=== PATIENT | male | born 1985 | race Caucasian/White ===

== ENCOUNTER 2017-01-28 14:21 | Emergency (ER) | payer BC ==
--- NOTE | 2017-01-28 14:32 | EDM.PDOC ---
ED HPI GENERAL MEDICAL PROBLEM - General Stated Complaint: HIGH BP Time Seen by Provider: 01/28/17 14:24 Source of Information: Reports: Patient History Limitations: Reports: No Limitations - History of Present Illness INITIAL COMMENTS - FREE TEXT/NARRATIVE: History of present illness: []Patient presents with high blood pressure this morning after inability to sleep all night. Patient states he has felt irritable and uncomfortable with occasional palpitations in his chest and headache. He denies any fevers, chills , blurry vision, nausea, vomiting or numbness or tingling. His checked his blood pressure and found it to be 150/100 this morning decided to come into the ER to have it checked. He has a strong family history of hypertension not been diagnosed with hypertension and is not currently taking any medications. Review of systems: As per history of present illness and below otherwise all systems reviewed and negative. Past medical history: As per history of present illness and as reviewed below otherwise noncontributory. Surgical history: As per history of present illness and as reviewed below otherwise noncontributory. Social history: No reported history of drug or alcohol abuse. Family history: As per history of present illness and as reviewed below otherwise noncontributory. Physical exam: General: Well developed, well nourished in NAD HEENT: Atraumatic, normocephalic, pupils reactive, negative for conjunctival pallor or scleral icterus, mucous membranes moist, throat clear, neck supple, nontender, trachea midline. Lungs: Clear to auscultation, breath sounds equal bilaterally, chest nontender. Heart: S1S2, regular, negative for clicks, rubs, or JVD. Abdomen: Soft, nondistended, nontender. Negative for masses or hepatosplenomegaly. Negative for costovertebral tenderness. Pelvis: Stable nontender. Genitourinary: Deferred. Rectal: Deferred. Extremities: Atraumatic, negative for cords or calf pain. Neurovascular unremarkable. Neuro: Awake, alert, oriented. Cranial nerves II through XII unremarkable. Cerebellum unremarkable. Motor and sensory unremarkable throughout. Exam nonfocal. Diagnostics: []Labs and x-ray done which are normal Therapeutics: [] Impression: []Uncontrolled high blood pressure, acute sinusitis, anxiety Plan: []Bactrim 10 days and Ativan 5 tablets 0.5 mg Definitive disposition and diagnosis as appropriate pending reevaluation and review of above. - Related Data Allergies Allergy/AdvReac Type Severity Reaction Status Date / Time No Known Allergies Allergy Verified 01/28/17 14:31 Home Meds: Home Meds Albuterol [Ventolin HFA] 1 puff INH Q4H PRN 08/08/13 [History] Fluticasone/Salmeterol [Advair Diskus 100-50] 1 puff INH BID 01/28/17 [History] LORazepam [Ativan] 0.5 mg PO Q8HR PRN #5 tablet 01/28/17 [Rx] Montelukast Sodium [Singulair] 10 mg PO DAILY 01/28/17 [History] Sulfamethoxazole/Trimethoprim [Bactrim Ds Tablet] 1 each PO BID #20 tablet 01/28 [Rx] Past Medical History - Past Health History Medical/Surgical History: Denies Medical/Surgical History Social & Family History - Recreational Drug Use Recreational Drug Use: No ED ROS GENERAL - Review of Systems Review Of Systems: See Below (See history of present illness) ED EXAM, GENERAL - Physical Exam Exam: See Below (See history of present illness) Course - Vital Signs Last Recorded V/S: Last Vital Signs Temp 36.3 C 01/28/17 14:27 Pulse 90 01/28/17 14:27 Resp 12 01/28/17 14:27 BP 148/96 H 01/28/17 14:27 Pulse Ox 98 01/28/17 14:27 - Orders/Labs/Meds Orders: Active Orders 24 hr Category Date Time Status EKG Documentation Completion [RC] STAT Care 01/28/17 14:45 Active Sodium Chloride 0.9% [Saline Flush] Med 01/28/17 14:45 Active 10 ml FLUSH ASDIRECTED PRN Sodium Chloride 0.9% [Saline Flush] Med 01/28/17 14:45 Active 2.5 ml FLUSH ASDIRECTED PRN Saline Lock Insert [OM.PC] Stat Oth 01/28/17 14:45 Ordered Medication Orders Sodium Chloride (Saline Flush) 10 ml FLUSH ASDIRECTED PRN PRN Reason: Keep Vein Open Sodium Chloride (Saline Flush) 2.5 ml FLUSH ASDIRECTED PRN PRN Reason: Keep Vein Open Labs: Laboratory Tests 01/28/17 01/28/17 01/28/17 Range/Units 15:03 15:03 15:12 WBC 7.03 (4.0-11.0) K/uL RBC 5.74 (4.50-5.90) M/uL Hgb 17.1 H (13.0-17.0) g/dL Hct 47.9 (38.0-50.0) % MCV 83.4 (80.0-98.0) fL MCH 29.8 (27.0-32.0) pg MCHC 35.7 (31.0-37.0) g/dL RDW Std Deviation 37.0 (28.0-62.0) fl RDW Coeff of Rangel 12 (11.0-15.0) % Plt Count 199 (150-400) K/uL MPV 8.80 (7.40-12.00) fL Neut % (Auto) 65.0 (48.0-80.0) % Lymph % (Auto) 24.6 (16.0-40.0) % Eaton % (Auto) 8.4 (0.0-15.0) % Eos % (Auto) 1.4 (0.0-7.0) % Baso % (Auto) 0.6 (0.0-1.5) % Neut # (Auto) 4.6 (1.4-5.7) K/uL Lymph # (Auto) 1.7 (0.6-2.4) K/uL Eaton # (Auto) 0.6 (0.0-0.8) K/uL Eos # (Auto) 0.1 (0.0-0.7) K/uL Baso # (Auto) 0.0 (0.0-0.1) K/uL Nucleated RBC % 0.0 /100WBC Nucleated RBCs # 0 K/uL Sodium (136-146) mmol/L Potassium (3.5-5.1) mmol/L Chloride (98-110) mmol/L Carbon Dioxide (21-31) mmol/L BUN (6.0-23.0) mg/dL Creatinine (0.6-1.5) mg/dL Est Cr Clr Drug Dosing mL/min Estimated GFR (MDRD) ml/min Glucose (60-110) mg/dL Calcium (8.8-10.8) mg/dL Total Bilirubin (0.1-1.5) mg/dL AST (5-40) IU/L ALT (8-54) IU/L Alkaline Phosphatase (40-150) Troponin I (0.0-0.29) NG/ML Total Protein (6.0-8.0) g/dL Albumin (3.5-5.0) g/dL Globulin (2.0-3.5) g/dL Albumin/Globulin Ratio (1.3-2.8) Urine Color YELLOW Urine Appearance CLEAR Urine pH 6.0 (5.0-8.0) Ur Specific Edison 1.025 (1.001-1.035) Urine Protein NEGATIVE (NEGATIVE) mg/dL Urine Glucose (UA) NEGATIVE (NEGATIVE) mg/dL Urine Ketones NEGATIVE (NEGATIVE) mg/dL Urine Occult Blood NEGATIVE (NEGATIVE) Urine Nitrite NEGATIVE (NEGATIVE) Urine Bilirubin NEGATIVE (NEGATIVE) Urine Urobilinogen 0.2 (<2.0) EU/dL Ur Leukocyte Esterase NEGATIVE (NEGATIVE) Urine RBC NONE SEEN (0-2/HPF) Urine WBC 0-1 (0-5/HPF) Ur Epithelial Cells RARE (NONE-FEW) Urine Bacteria RARE (NEGATIVE) Urine Opiates Screen NEGATIVE (NEGATIVE) Ur Oxycodone Screen NEGATIVE (NEGATIVE) Urine Methadone Screen NEGATIVE (NEGATIVE) Ur Barbiturates Screen NEGATIVE (NEGATIVE) Ur Phencyclidine Scrn NEGATIVE (NEGATIVE) Ur Amphetamine Screen NEGATIVE (NEGATIVE) U Methamphetamines Scrn NEGATIVE (NEGATIVE) U Benzodiazepines Scrn NEGATIVE (NEGATIVE) U Cocaine Metab Screen NEGATIVE (NEGATIVE) U Marijuana (THC) Screen NEGATIVE (NEGATIVE) 01/28/17 01/28/17 Range/Units 15:12 15:12 WBC (4.0-11.0) K/uL RBC (4.50-5.90) M/uL Hgb (13.0-17.0) g/dL Hct (38.0-50.0) % MCV (80.0-98.0) fL MCH (27.0-32.0) pg MCHC (31.0-37.0) g/dL RDW Std Deviation (28.0-62.0) fl RDW Coeff of Rangel (11.0-15.0) % Plt Count (150-400) K/uL MPV (7.40-12.00) fL Neut % (Auto) (48.0-80.0) % Lymph % (Auto) (16.0-40.0) % Eaton % (Auto) (0.0-15.0) % Eos % (Auto) (0.0-7.0) % Baso % (Auto) (0.0-1.5) % Neut # (Auto) (1.4-5.7) K/uL Lymph # (Auto) (0.6-2.4) K/uL Eaton # (Auto) (0.0-0.8) K/uL Eos # (Auto) (0.0-0.7) K/uL Baso # (Auto) (0.0-0.1) K/uL Nucleated RBC % /100WBC Nucleated RBCs # K/uL Sodium 140 (136-146) mmol/L Potassium 4.0 (3.5-5.1) mmol/L Chloride 106 (98-110) mmol/L Carbon Dioxide 24 (21-31) mmol/L BUN 22 (6.0-23.0) mg/dL Creatinine 0.9 (0.6-1.5) mg/dL Est Cr Clr Drug Dosing 133.17 mL/min Estimated GFR (MDRD) > 60.0 ml/min Glucose 96 (60-110) mg/dL Calcium 9.7 (8.8-10.8) mg/dL Total Bilirubin 0.5 (0.1-1.5) mg/dL AST 21 (5-40) IU/L ALT 25 (8-54) IU/L Alkaline Phosphatase 64 (40-150) Troponin I < 0.10 (0.0-0.29) NG/ML Total Protein 7.6 (6.0-8.0) g/dL Albumin 4.4 (3.5-5.0) g/dL Globulin 3.2 (2.0-3.5) g/dL Albumin/Globulin Ratio 1.4 (1.3-2.8) Urine Color Urine Appearance Urine pH (5.0-8.0) Ur Specific Edison (1.001-1.035) Urine Protein (NEGATIVE) mg/dL Urine Glucose (UA) (NEGATIVE) mg/dL Urine Ketones (NEGATIVE) mg/dL Urine Occult Blood (NEGATIVE) Urine Nitrite (NEGATIVE) Urine Bilirubin (NEGATIVE) Urine Urobilinogen (<2.0) EU/dL Ur Leukocyte Esterase (NEGATIVE) Urine RBC (0-2/HPF) Urine WBC (0-5/HPF) Ur Epithelial Cells (NONE-FEW) Urine Bacteria (NEGATIVE) Urine Opiates Screen (NEGATIVE) Ur Oxycodone Screen (NEGATIVE) Urine Methadone Screen (NEGATIVE) Ur Barbiturates Screen (NEGATIVE) Ur Phencyclidine Scrn (NEGATIVE) Ur Amphetamine Screen (NEGATIVE) U Methamphetamines Scrn (NEGATIVE) U Benzodiazepines Scrn (NEGATIVE) U Cocaine Metab Screen (NEGATIVE) U Marijuana (THC) Screen (NEGATIVE) Meds: Medications Generic Name Dose Route Start Last Admin Trade Name Freq PRN Reason Stop Dose Admin Sodium Chloride 10 ml 01/28/17 14:45 Saline Flush FLUSH ASDIRECTED PRN Keep Vein Open Sodium Chloride 2.5 ml 01/28/17 14:45 Saline Flush FLUSH ASDIRECTED PRN Keep Vein Open Departure - Departure Time of Disposition: 15:52 Disposition: Home, Self-Care 01 Condition: Good Clinical Impression: Anxiety Sinusitis Qualifiers: Sinusitis location: unspecified location Chronicity: acute Recurrence: non- recurrent Qualified Code(s): J01.90 - Acute sinusitis, unspecified - Discharge Information Prescriptions: LORazepam [Ativan] 0.5 mg PO Q8HR PRN #5 tablet PRN Reason: Anxiety Sulfamethoxazole/Trimethoprim [Bactrim Ds Tablet] 1 each PO BID #20 tablet Instructions: Sinusitis, Adult, [id number], Panic Attacks Referrals: PCP,Unknown [Primary Care Provider] - Forms: ED Department Discharge Additional Instructions: The following information is given to patients seen in the emergency department who are being discharged to home. This information is to outline your options for follow-up care. We provide all patients seen in our emergency department with a follow-up referral. The need for follow-up, as well as the timing and circumstances, are variable depending upon the specifics of your emergency department visit. If you don't have a primary care physician on staff, we will provide you with a referral. We always advise you to contact your personal physician following an emergency department visit to inform them of the circumstance of the visit and for follow-up with them and/or the need for any referrals to a consulting specialist. The emergency department will also refer you to a specialist when appropriate. This referral assures that you have the opportunity for follow-up care with a specialist. All of these measure are taken in an effort to provide you with optimal care, which includes your follow-up. Under all circumstances we always encourage you to contact your private physician who remains a resource for coordinating your care. When calling for follow-up care, please make the office aware that this follow-up is from your recent emergency room visit. If for any reason you are refused follow-up, please contact the [facility] Emergency Department at and asked to speak to the emergency department charge nurse. Bactrim twice a day for 10 days, Ativan for anxiety follow-up with primary care physician for further blood pressure treatment return here if symptoms worsen or change [facility] [address] [place] [id number] - My Orders Last 24 Hours: My Active Orders 01/28/17 14:45 EKG Documentation Completion [RC] STAT Sodium Chloride 0.9% [Saline Flush] 10 ml FLUSH ASDIRECTED PRN Sodium Chloride 0.9% [Saline Flush] 2.5 ml FLUSH ASDIRECTED PRN Saline Lock Insert [OM.PC] Stat - Assessment/Plan Last 24 Hours: My Active Orders 01/28/17 14:45 EKG Documentation Completion [RC] STAT Sodium Chloride 0.9% [Saline Flush] 10 ml FLUSH ASDIRECTED PRN Sodium Chloride 0.9% [Saline Flush] 2.5 ml FLUSH ASDIRECTED PRN Saline Lock Insert [OM.PC] Stat
[2017-01-28] MEDS ORDERED: Sodium Chloride 0.9% 2.5 ML Syringe FLUSH PRN (14:45)
[2017-01-28] MEDS ORDERED: Sodium Chloride 0.9% 10 ML Syringe FLUSH PRN (14:45)
[2017-01-28 15:41] LABS: CHLORIDE,CL 106 mmol/L (98-110); SODIUM,NA 140 mmol/L (136-146)
--- NOTE | 2017-01-28 15:44 | CR ---
EXAMINATION: Portable chest radiograph. HISTORY: Shortness of breath. FINDINGS: The trachea is midline. The cardiomediastinal silhouette is within normal limits. No pulmonary infilt rates, effusions or pneumothorax. Osseous structures appear unremarkable. IMPRESSION: No acute cardiopulmonary process.
[2017-01-28 16:21] VITALS: BP 147/93
== END 2017-01-28 16:16 | disposition home or self-care (01) ==
LOC: MW.ED 14:21
DX: J01.90 Acute sinusitis, unspecified (principal); F41.9 Anxiety disorder, unspecified; I10 Essential (primary) hypertension; Z79.899 Other long term (current) drug therapy
CPT/HCPCS: 36415; 71010; 71010-26; 80053; 80305; 81001; 84484; 85025; 93005; 99283; 99284-25

== ENCOUNTER 2017-12-19 12:06 | Emergency (ER) | payer BC, OTHER ==
[2017-12-19] MEDS ORDERED: Aspirin 81 MG Tab.Chew PO ONE (12:08)
--- NOTE | 2017-12-19 12:09 | EDM.PDOC ---
ED HPI GENERAL MEDICAL PROBLEM - General Chief Complaint: Cardiovascular Problem Stated Complaint: CHEST PAINS Time Seen by Provider: 12/19/17 12:08 Source of Information: Reports: Patient - History of Present Illness INITIAL COMMENTS - FREE TEXT/NARRATIVE: HISTORY AND PHYSICAL: History of present illness: [32-year-old male presents with chest pressure nonradiating not associated with shortness breath or diaphoresis does describe tingling in his hands bilateral no fever nausea vomiting chills sweats no shortness breath headache dizziness palpitation no bowel or urine symptoms Patient denies chronic medications illness or disease ] Review of systems: As per history of present illness and below otherwise all systems reviewed and negative. Past medical history: As per history of present illness and as reviewed below otherwise noncontributory. Surgical history: As per history of present illness and as reviewed below otherwise noncontributory. Social history: No reported history of drug or alcohol abuse. Family history: As per history of present illness and as reviewed below otherwise noncontributory. Physical exam: HEENT: Atraumatic, normocephalic, pupils reactive, negative for conjunctival pallor or scleral icterus, mucous membranes moist, throat clear, neck supple, nontender, trachea midline. Lungs: Clear to auscultation, breath sounds equal bilaterally, chest nontender. Heart: S1S2, regular, negative for clicks, rubs, or JVD. Abdomen: Soft, nondistended, nontender. Negative for masses or hepatosplenomegaly. Negative for costovertebral tenderness. Pelvis: Stable nontender. Genitourinary: Deferred. Rectal: Deferred. Extremities: Atraumatic, negative for cords or calf pain. Neurovascular unremarkable. Neuro: Awake, alert, oriented. Cranial nerves II through XII unremarkable. Cerebellum unremarkable. Motor and sensory unremarkable throughout. Exam nonfocal. Diagnostics: [CBC CMP troponin lipase EKG Chest 1 view ] Therapeutics: [Patient had actually taken 07/09/24 milligram aspirin tabs at home Lopressor 5 mg IV Proton X 80 mg IV ] Ativan 1 mg IV normal saline bolus Impression: [ anxiety mild dehydration ] Definitive disposition and diagnosis as appropriate pending reevaluation and review of above. chest Pain Score (Numeric/FACES): 3 - Related Data Allergies Allergy/AdvReac Type Severity Reaction Status Date / Time No Known Allergies Allergy Verified 12/19/17 12:09 Home Meds: Home Meds Fluticasone/Salmeterol [Advair Diskus 100-50] 1 puff INH BID 01/28/17 [History] Aspirin 325 mg PO 12/19/17 [History] Past Medical History - Past Health History Medical/Surgical History: Denies Medical/Surgical History Respiratory History: Reports: Asthma - Infectious Disease History Infectious Disease History: Reports: Chicken Pox - Past Surgical History HEENT Surgical History: Reports: Tonsillectomy Social & Family History - Caffeine Use Caffeine Use: Reports: Coffee ED ROS GENERAL - Review of Systems Review Of Systems: See Below ED EXAM, GENERAL - Physical Exam Exam: See Below Course - Vital Signs Last Recorded V/S: Last Vital Signs Temp 98.6 F 12/19/17 12:10 Pulse 82 12/19/17 12:54 Resp 16 12/19/17 12:54 BP 158/91 H 12/19/17 12:54 Pulse Ox 98 12/19/17 12:54 - Orders/Labs/Meds Orders: Active Orders 24 hr Category Date Time Status EKG 12 Lead [EKG Documentation Completion] [RC] STAT Care 12/19/17 12:43 Active EKG Documentation Completion [RC] STAT Care 12/19/17 12:43 Active UA W/MICROSCOPIC [URIN] Stat Lab 12/19/17 12:43 Ordered Sodium Chloride 0.9% [Normal Saline] 1,000 ml Med 12/19/17 12:13 Active IV STAT Medication Orders Sodium Chloride (Normal Saline) 1,000 mls @ 999 mls/hr IV STAT ONE Stop: 12/19/17 13:13 Last Admin: 12/19/17 12:29 Dose: 999 mls/hr Labs: Laboratory Tests 12/19/17 12/19/17 Range/Units 12:10 12:10 WBC 5.11 (4.0-11.0) K/uL RBC 5.52 (4.50-5.90) M/uL Hgb 16.0 (13.0-17.0) g/dL Hct 45.9 (38.0-50.0) % MCV 83.2 (80.0-98.0) fL MCH 29.0 (27.0-32.0) pg MCHC 34.9 (31.0-37.0) g/dL RDW Std Deviation 39.0 (28.0-62.0) fl RDW Coeff of Rangel 13 (11.0-15.0) % Plt Count 174 (150-400) K/uL MPV 8.90 (7.40-12.00) fL Neut % (Auto) 64.0 (48.0-80.0) % Lymph % (Auto) 21.7 (16.0-40.0) % Lamb % (Auto) 7.4 (0.0-15.0) % Eos % (Auto) 6.1 (0.0-7.0) % Baso % (Auto) 0.8 (0.0-1.5) % Neut # (Auto) 3.3 (1.4-5.7) K/uL Lymph # (Auto) 1.1 (0.6-2.4) K/uL Lamb # (Auto) 0.4 (0.0-0.8) K/uL Eos # (Auto) 0.3 (0.0-0.7) K/uL Baso # (Auto) 0.0 (0.0-0.1) K/uL Nucleated RBC % 0.0 /100WBC Nucleated RBCs # 0 K/uL Sodium 140 (136-148) mmol/L Potassium 3.9 (3.5-5.1) mmol/L Chloride 104 (98-107) mmol/L Carbon Dioxide 28.3 (21.0-32.0) mmol/L BUN 11 (7.0-18.0) mg/dL Creatinine 0.9 (0.8-1.3) mg/dL Est Cr Clr Drug Dosing 131.93 mL/min Estimated GFR (MDRD) > 60.0 ml/min Glucose 99 (74-106) mg/dL Calcium 9.3 (8.5-10.1) mg/dL Total Bilirubin 0.5 (0.2-1.0) mg/dL AST 16 (15-37) IU/L ALT 30 (14-63) IU/L Alkaline Phosphatase 51 (46-116) U/L Troponin I < 0.050 (0.000-0.056) ng/mL Total Protein 7.2 (6.4-8.2) g/dL Albumin 4.1 (3.4-5.0) g/dL Globulin 3.1 (2.0-3.5) g/dL Albumin/Globulin Ratio 1.3 (1.3-2.8) Lipase 108 (73-393) U/L Meds: Medications Generic Name Dose Route Start Last Admin Trade Name Freq PRN Reason Stop Dose Admin Sodium Chloride 1,000 mls @ 999 mls/hr 12/19/17 12:13 12/19/17 12:29 Normal Saline IV 12/19/17 13:13 999 mls/hr STAT ONE Administration Discontinued Medications Generic Name Dose Route Start Last Admin Trade Name Freq PRN Reason Stop Dose Admin Aspirin 324 mg 12/19/17 12:08 12/19/17 12:32 Aspirin PO 12/19/17 12:09 Not Given ONETIME ONE Lorazepam 1 mg 12/19/17 12:39 12/19/17 12:51 Ativan IVPUSH 12/19/17 12:40 1 mg ONETIME ONE Administration Metoprolol Tartrate 5 mg 12/19/17 12:15 12/19/17 12:54 Lopressor IVPUSH 12/19/17 12:26 Not Given Q5M URIAH Pantoprazole Sodium 80 mg 12/19/17 12:17 12/19/17 12:26 Protonix Iv IVPUSH 12/19/17 12:18 80 mg .BOLUS ONE Administration Departure - Departure Time of Disposition: 13:06 Disposition: Home, Self-Care 01 Condition: Good Clinical Impression: Anxiety Referrals: Ike Hernandez MD [Primary Care Provider] - Forms: ED Department Discharge Additional Instructions: The following information is given to patients seen in the emergency department who are being discharged to home. This information is to outline your options for follow-up care. We provide all patients seen in our emergency department with a follow-up referral. The need for follow-up, as well as the timing and circumstances, are variable depending upon the specifics of your emergency department visit. If you don't have a primary care physician on staff, we will provide you with a referral. We always advise you to contact your personal physician following an emergency department visit to inform them of the circumstance of the visit and for follow-up with them and/or the need for any referrals to a consulting specialist. The emergency department will also refer you to a specialist when appropriate. This referral assures that you have the opportunity for follow-up care with a specialist. All of these measure are taken in an effort to provide you with optimal care, which includes your follow-up. Under all circumstances we always encourage you to contact your private physician who remains a resource for coordinating your care. When calling for follow-up care, please make the office aware that this follow-up is from your recent emergency room visit. If for any reason you are refused follow-up, please contact the [facility] emergency department at and asked to speak to the emergency department charge nurse. - My Orders Last 24 Hours: My Active Orders 12/19/17 12:13 Sodium Chloride 0.9% [Normal Saline] 1,000 ml IV STAT 12/19/17 12:43 EKG 12 Lead [EKG Documentation Completion] [RC] STAT EKG Documentation Completion [RC] STAT UA W/MICROSCOPIC [URIN] Stat - Assessment/Plan Last 24 Hours: My Active Orders 12/19/17 12:13 Sodium Chloride 0.9% [Normal Saline] 1,000 ml IV STAT 12/19/17 12:43 EKG 12 Lead [EKG Documentation Completion] [RC] STAT EKG Documentation Completion [RC] STAT UA W/MICROSCOPIC [URIN] Stat
[2017-12-19] MEDS ORDERED: Sodium Chloride 0.9% 1,000 ML IV ONE (12:13)
[2017-12-19] MEDS ORDERED: Pantoprazole 40 MG Vial IVPUSH ONE (12:17)
[2017-12-19] MEDS: Metoprolol Tartrate 5 MG/5 ML SDV IVPUSH SCH ×2 (12:27→12:54)
[2017-12-19] MEDS ORDERED: LORazepam 2 MG/ML SDV IVPUSH ONE (12:39)
[2017-12-19 12:52] LABS: CHLORIDE,CL 104 mmol/L (98-107); SODIUM,NA 140 mmol/L (136-148)
[2017-12-19 12:55] VITALS: BP 158/91
== END 2017-12-19 13:15 | disposition home or self-care (01) ==
LOC: MW.ED 12:06
DX: F41.9 Anxiety disorder, unspecified (principal); E86.0 Dehydration
CPT/HCPCS: 36415; 71045; 80053; 81001; 83690; 84484; 85025; 93005; 96361; 96374; 96375; 99285; C9113; J2060; J3490; J7040; 99283